=== PATIENT | female | born 1950 | race Two or more races ===

== ENCOUNTER 2017-05-26 13:02 | Inpatient (IN) | payer MEDICARE, MEDICAID ==
[~2017-05-26] VITALS: Ht 157.5 cm; Wt 79.5 kg
[2017-05-26] MEDS ORDERED: SODIUM CHLORIDE 0.9% 1,000 ML IV ONE (13:50)
[2017-05-26] MEDS ORDERED: NALBUPHINE HCL 10 MG/1ml INJECTION IV ONE (14:00)
[2017-05-26] MEDS ORDERED: METOCLOPRAMIDE HCL 5MG/ml INJ 2ml VIAL IV ONE (14:00)
[2017-05-26 14:23] LABS: Basophils # (auto) 0.1 uL; Eosinophils # (auto) 0.3 uL; Eosinophils % (auto) 3.9 % (0.0-7.0); Hemoglobin 11.5 g/dL (12.2-16.2); Lymphocytes # (auto) 2.5 uL; Mean Platelet Volume 7.3 fL (6.9-10.8); Monocytes # (auto) 1.1 uL
[2017-05-26 14:25] LABS: Basophils % (auto) 0.7 % (0.0-2.0); Hematocrit 33.8 % (36.0-46.0); Lymphocytes % (auto) 29.2 % (10.0-50.0); Mean Corpuscular Hemoglobin 34.6 pg (28.0-32.0); Mean Corpuscular Hgb Conc. 34.2 g/dL (32.0-36.0); Mean Corpuscular Volume 101.3 fL (80.0-100.0); Monocytes % (auto) 13.4 % (0.0-12.0); Neutrophils # (auto) 4.5 uL; Neutrophils % (auto) 52.8 % (37.0-80.0); Nucleated Red Blood Cells % 0.1 %; Platelet Count (auto) 230 10^3/uL (140-450); Red Cell Distribution Width 13.5 % (11.8-14.3); White Blood Cell 8.5 10^3/uL (4.4-10.8)
[2017-05-26 14:45] LABS: INR 1.03 (0.9-1.15); Partial Thromboplastin Time 25.7 sec (22.64-33.71); Prothrombin Time 11.2 sec (9.37-12.3)
[2017-05-26 14:47] LABS: Albumin 2.8 g/dL (3.4-5.0); Alkaline Phosphatase 89 U/L (45-117); Anion Gap 9 (5-15); Aspartate Aminotransferase 32 U/L (15-37); BUN/Creatinine Ratio 22.1; Bilirubin, Total 0.7 mg/dL (0.2-1.0); Blood Urea Nitrogen 17 mg/dL (7-18); Calcium 9.2 mg/dL (8.5-10.1); Carbon Dioxide 27 mmol/L (21-32); Chloride 102 mmol/L (98-107); GFR African American 97 mL/min; GFR Non-African American 80 mL/min; Glucose 117 mg/dL (74-106); Magnesium 1.9 mg/dL (1.6-2.6); Potassium 4.1 mmol/L (3.5-5.1); Sodium 138 mmol/L (136-145); Total Protein 8.6 g/dL (6.4-8.2)
[2017-05-26] MEDS ORDERED: SPIRONOLACTONE 25 MG TAB PO ONE (15:30)
[2017-05-26] MEDS ORDERED: IOHEXOL 350 MG/ML 100ML IJ ONE (15:30)
[2017-05-26] MEDS ORDERED: FUROSEMIDE 40 MG/4 ML VIAL IV ONE (15:30)
[2017-05-26] MEDS ORDERED: DEXTROSE (50%) 50ML SYRG IV PRN (16:30)
[2017-05-26] MEDS ORDERED: OSELTAMIVIR 75 MG CAP PO ONE (16:30)
[2017-05-26] MEDS ORDERED: LACTULOSE 20Gm/30ML SOLN PO PRN (16:30)
[2017-05-26] MEDS: PANTOPRAZOLE 40 MG TAB PO SCH (16:30)
[2017-05-26] MEDS: methylPREDNISolone SOD SUCC 40 MG/ML VL IV SCH (16:30)
[2017-05-26] MEDS ORDERED: ACETAMINOPHEN 500 MG TAB PO PRN (16:30)
[2017-05-26] MEDS ORDERED: TEMAZEPAM 15 MG CAP PO PRN (16:30)
[2017-05-26] MEDS ORDERED: ALBUTEROL SULF 2.5 MG/0.5ML(0.5%) NEB SOLN NEB PRN (16:30)
[2017-05-26] MEDS ORDERED: NITROGLYCERIN 0.4 MG SL TAB SL PRN (16:30)
[2017-05-26] MEDS ORDERED: MORPHINE SULF INJ 2 MG/ML SYRINGE 1ML IV PRN (16:30)
[2017-05-26 16:43] LABS: B-Type Natriuretic Peptide 20.43 pg/mL (0-100)
[2017-05-26] MEDS: ACCU-CHEK COMFORT CURVE STRIP VI SCH ×2 (16:49→23:11)
[2017-05-26] MEDS: InsuLIN REG 1unit/0.01ml Soln (100units/ml) SC SCH ×2 (16:49→23:12)
[2017-05-26 16:50] LABS: Temperature: 22.2 C (20.0-25.0)
[2017-05-26] MEDS: cefTRIAXone 1GM/10ml IVPUSH 10 ML IV SCH (17:02)
[2017-05-26] MEDS: ENOXAPARIN SOD 40 MG/0.4 ML SYRINGE SC SCH (17:06)
[2017-05-26 17:36] LABS: Urine Bilirubin Negative (Negative); Urine Blood Negative /uL (Negative); Urine Color Yellow (Yellow); Urine Glucose Normal (Normal); Urine Ketone Negative (Negative); Urine Nitrite Negative (Negative); Urine RBC <1 /hpf (0 - 4); Urine Squamous Epithelial Cell FEW /hpf (<5); Urine Urobilinogen Normal (Negative)
[2017-05-26] MEDS: ALBUTEROL SULF 2.5 MG/0.5ML(0.5%) NEB SOLN NEB SCH (18:27)
[2017-05-26] MEDS: IPRATROPIUM BROM 0.5 MG/2.5ML INH SOL NEB SCH (18:27)
[2017-05-26 19:21] VITALS: BP 110/65
[2017-05-26 21:00] VITALS: BP 106/79
[2017-05-26 22:00] VITALS: BP 106/79
[2017-05-26] MEDS: CARVEDILOL 3.125 MG TAB PO SCH (22:00)
[2017-05-26] MEDS: OSELTAMIVIR 75 MG CAP PO SCH (23:10)
[2017-05-26] MEDS: SODIUM CHLOR 0.9% PF (SALINE LOCK) 10ML VIAL IV SCH (23:10)
[2017-05-27] VITALS (8 sets, daily range): BP systolic 95–159; BP diastolic 54–96
[2017-05-27] MEDS: IPRATROPIUM BROM 0.5 MG/2.5ML INH SOL NEB SCH ×2 (00:36→18:46)
[2017-05-27] MEDS: ALBUTEROL SULF 2.5 MG/0.5ML(0.5%) NEB SOLN NEB SCH ×2 (00:36→18:46)
[2017-05-27] MEDS: MORPHINE SULF INJ 2 MG/ML SYRINGE 1ML IV PRN ×4 (01:10→23:02)
[2017-05-27] MEDS ORDERED: GABA-494 PO (02:03)
[2017-05-27] MEDS ORDERED: INSUINJ18 SC (02:03)
[2017-05-27] MEDS ORDERED: INSLANTI SC (02:03)
[2017-05-27] MEDS: methylPREDNISolone SOD SUCC 40 MG/ML VL IV SCH ×2 (04:15→17:58)
[2017-05-27] MEDS: SODIUM CHLOR 0.9% PF (SALINE LOCK) 10ML VIAL IV SCH ×3 (06:08→22:00)
[2017-05-27] MEDS: ACCU-CHEK COMFORT CURVE STRIP VI SCH ×4 (06:35→22:00)
[2017-05-27] MEDS: InsuLIN REG 1unit/0.01ml Soln (100units/ml) SC SCH ×4 (06:35→23:22)
[2017-05-27] MEDS: HYDROcodone-ACET 5/325MG TAB PO PRN ×2 (06:35→13:44)
[2017-05-27] MEDS: cefTRIAXone 1GM/10ml IVPUSH 10 ML IV SCH (09:13)
[2017-05-27] MEDS: PANTOPRAZOLE 40 MG TAB PO SCH ×2 (09:15→23:00)
[2017-05-27] MEDS: CARVEDILOL 3.125 MG TAB PO SCH (09:15)
[2017-05-27] MEDS: ENOXAPARIN SOD 40 MG/0.4 ML SYRINGE SC SCH (09:16)
[2017-05-27] MEDS: OSELTAMIVIR 75 MG CAP PO SCH ×2 (09:16→23:01)
[2017-05-27] MEDS ORDERED: DEXTROSE (50%) 50ML SYRG IV PRN (13:00)
[2017-05-27] MEDS ORDERED: TEMAZEPAM 15 MG CAP PO PRN (13:45)
[2017-05-27] MEDS ORDERED: DOXYCYCLINE 100 MG TAB/CAP PO ONE (14:00)
[2017-05-27] MEDS: DOXYCYCLINE 100 MG TAB/CAP PO SCH (22:00)
[2017-05-27] MEDS: LORazepam 0.5 MG TAB PO PRN (23:01)
[2017-05-27] MEDS: INSULIN DETEMIR(LEVEMIR) 1unit/0.01ml Soln (100units/ml) SC SCH (23:23)
[2017-05-28] MEDS: methylPREDNISolone SOD SUCC 40 MG/ML VL IV SCH ×2 (04:57→16:56)
[2017-05-28 05:00] VITALS: BP 116/69
[2017-05-28] MEDS: SODIUM CHLOR 0.9% PF (SALINE LOCK) 10ML VIAL IV SCH ×3 (06:25→22:21)
[2017-05-28] MEDS: ACCU-CHEK COMFORT CURVE STRIP VI SCH ×4 (06:26→22:23)
[2017-05-28] MEDS: HYDROcodone-ACET 5/325MG TAB PO PRN (06:34)
[2017-05-28] MEDS: IPRATROPIUM BROM 0.5 MG/2.5ML INH SOL NEB SCH ×4 (06:36→19:10)
[2017-05-28] MEDS: ALBUTEROL SULF 2.5 MG/0.5ML(0.5%) NEB SOLN NEB SCH ×4 (06:36→19:10)
[2017-05-28] MEDS: InsuLIN REG 1unit/0.01ml Soln (100units/ml) SC SCH ×4 (06:37→22:37)
[2017-05-28] MEDS: INSULIN DETEMIR(LEVEMIR) 1unit/0.01ml Soln (100units/ml) SC SCH ×2 (06:40→22:37)
[2017-05-28 09:00] VITALS: BP 117/70
[2017-05-28] MEDS: OSELTAMIVIR 75 MG CAP PO SCH ×2 (11:45→22:22)
[2017-05-28] MEDS: MORPHINE SULF INJ 2 MG/ML SYRINGE 1ML IV PRN ×2 (11:45→20:43)
[2017-05-28] MEDS: PANTOPRAZOLE 40 MG TAB PO SCH ×2 (11:45→22:22)
[2017-05-28] MEDS: cefTRIAXone 1GM/10ml IVPUSH 10 ML IV SCH (11:45)
[2017-05-28] MEDS: ENOXAPARIN SOD 40 MG/0.4 ML SYRINGE SC SCH (11:45)
[2017-05-28] MEDS: DOXYCYCLINE 100 MG TAB/CAP PO SCH (11:45)
[2017-05-28 15:04] VITALS: BP 117/67
[2017-05-28 16:30] VITALS: BP 107/65
[2017-05-28] MEDS ORDERED: MULTIPLE VITAMINS W/ MINERALS TAB PO ONE (18:00)
[2017-05-28] MEDS: PRO-STAT 64 30ML PO SCH (18:22)
[2017-05-28 21:45] VITALS: BP 110/60
[2017-05-28] MEDS: AZITHROMYCIN 500MG/ 250ML 250 ML IV SCH (22:21)
[2017-05-28] MEDS: ASCORBIC ACID 500 MG TAB PO SCH (22:22)
[2017-05-28] MEDS: LORazepam 0.5 MG TAB PO PRN (22:45)
[2017-05-29] VITALS (7 sets, daily range): BP systolic 104–128; BP diastolic 56–69
[2017-05-29] MEDS: IPRATROPIUM BROM 0.5 MG/2.5ML INH SOL NEB SCH ×4 (00:55→19:23)
[2017-05-29] MEDS: ALBUTEROL SULF 2.5 MG/0.5ML(0.5%) NEB SOLN NEB SCH ×4 (00:55→19:23)
[2017-05-29] MEDS: methylPREDNISolone SOD SUCC 40 MG/ML VL IV SCH ×2 (04:35→16:31)
[2017-05-29 06:03] LABS: Basophils # (auto) 0 uL; Basophils % (auto) 0.1 % (0.0-2.0); Eosinophils # (auto) 0 uL; Mean Platelet Volume 7.6 fL (6.9-10.8); Nucleated Red Blood Cells % 0.1 %; Red Cell Distribution Width 13.5 % (11.8-14.3)
[2017-05-29 06:06] LABS: Hematocrit 30.6 % (36.0-46.0); Hemoglobin 10.5 g/dL (12.2-16.2); Lymphocytes # (auto) 1.1 uL; Lymphocytes % (auto) 14.1 % (10.0-50.0); Mean Corpuscular Hemoglobin 34.3 pg (28.0-32.0); Mean Corpuscular Hgb Conc. 34.3 g/dL (32.0-36.0); Monocytes # (auto) 0.6 uL; Monocytes % (auto) 7.9 % (0.0-12.0); Neutrophils # (auto) 6.3 uL; Neutrophils % (auto) 77.9 % (37.0-80.0); Platelet Count (auto) 242 10^3/uL (140-450); White Blood Cell 8.1 10^3/uL (4.4-10.8)
[2017-05-29 06:18] LABS: Calcium 8.9 mg/dL (8.5-10.1); Potassium 4.3 mmol/L (3.5-5.1)
[2017-05-29] MEDS: SODIUM CHLOR 0.9% PF (SALINE LOCK) 10ML VIAL IV SCH ×3 (06:21→21:59)
[2017-05-29] MEDS: LEVOTHYROXINE SODIUM 25 MCG TAB PO SCH (06:27)
[2017-05-29] MEDS: ACCU-CHEK COMFORT CURVE STRIP VI SCH ×4 (06:27→22:00)
[2017-05-29] MEDS: INSULIN DETEMIR(LEVEMIR) 1unit/0.01ml Soln (100units/ml) SC SCH ×2 (06:28→22:19)
[2017-05-29] MEDS: InsuLIN REG 1unit/0.01ml Soln (100units/ml) SC SCH ×4 (06:28→22:19)
[2017-05-29] MEDS: PRO-STAT 64 30ML PO SCH ×2 (09:03→18:00)
[2017-05-29] MEDS: cefTRIAXone 1GM/10ml IVPUSH 10 ML IV SCH (09:03)
[2017-05-29] MEDS: ASCORBIC ACID 500 MG TAB PO SCH ×2 (10:13→21:59)
[2017-05-29] MEDS: OSELTAMIVIR 75 MG CAP PO SCH (10:13)
[2017-05-29] MEDS: MULTIPLE VITAMINS W/ MINERALS TAB PO SCH (10:13)
[2017-05-29] MEDS: AZITHROMYCIN 500MG/ 250ML 250 ML IV SCH (10:13)
[2017-05-29] MEDS: PANTOPRAZOLE 40 MG TAB PO SCH ×2 (10:13→21:59)
[2017-05-29] MEDS: ENOXAPARIN SOD 40 MG/0.4 ML SYRINGE SC SCH (10:14)
[2017-05-29] MEDS: LORazepam 0.5 MG TAB PO PRN (12:00)
[2017-05-29] MEDS: HYDROcodone-ACET 5/325MG TAB PO PRN (14:52)
[2017-05-30] MEDS: IPRATROPIUM BROM 0.5 MG/2.5ML INH SOL NEB SCH ×4 (00:51→18:39)
[2017-05-30] MEDS: ALBUTEROL SULF 2.5 MG/0.5ML(0.5%) NEB SOLN NEB SCH ×4 (00:52→18:39)
[2017-05-30] MEDS: methylPREDNISolone SOD SUCC 40 MG/ML VL IV SCH ×2 (04:43→16:59)
[2017-05-30 05:00] VITALS: BP 119/60
[2017-05-30] MEDS: SODIUM CHLOR 0.9% PF (SALINE LOCK) 10ML VIAL IV SCH ×3 (05:40→21:24)
[2017-05-30] MEDS: ACCU-CHEK COMFORT CURVE STRIP VI SCH ×4 (06:33→21:26)
[2017-05-30] MEDS: LEVOTHYROXINE SODIUM 25 MCG TAB PO SCH (06:33)
[2017-05-30] MEDS: InsuLIN REG 1unit/0.01ml Soln (100units/ml) SC SCH ×4 (06:37→21:31)
[2017-05-30] MEDS: INSULIN DETEMIR(LEVEMIR) 1unit/0.01ml Soln (100units/ml) SC SCH ×2 (06:38→21:30)
[2017-05-30] MEDS: MORPHINE SULF INJ 2 MG/ML SYRINGE 1ML IV PRN (06:43)
[2017-05-30 08:00] VITALS: BP 108/62
[2017-05-30 09:12] VITALS: BP 108/62
[2017-05-30] MEDS: PRO-STAT 64 30ML PO SCH ×2 (09:20→18:00)
[2017-05-30] MEDS: cefTRIAXone 1GM/10ml IVPUSH 10 ML IV SCH (09:21)
[2017-05-30] MEDS: ASCORBIC ACID 500 MG TAB PO SCH ×2 (10:01→21:26)
[2017-05-30] MEDS: ENOXAPARIN SOD 40 MG/0.4 ML SYRINGE SC SCH (10:01)
[2017-05-30] MEDS: AZITHROMYCIN 500MG/ 250ML 250 ML IV SCH (10:01)
[2017-05-30] MEDS: PANTOPRAZOLE 40 MG TAB PO SCH ×2 (10:01→21:26)
[2017-05-30] MEDS: MULTIPLE VITAMINS W/ MINERALS TAB PO SCH (10:02)
[2017-05-30 13:11] VITALS: BP 110/63
[2017-05-30 17:12] VITALS: BP 129/68
[2017-05-30] MEDS: FLUDROCORTISONE ACETATE 0.1 MG TAB PO SCH (21:25)
[2017-05-30 22:00] VITALS: BP 122/76
[2017-05-31] MEDS: IPRATROPIUM BROM 0.5 MG/2.5ML INH SOL NEB SCH ×5 (00:18→23:51)
[2017-05-31] MEDS: methylPREDNISolone SOD SUCC 40 MG/ML VL IV SCH ×2 (04:30→15:40)
[2017-05-31 05:00] VITALS: BP 108/67
[2017-05-31] MEDS: ALBUTEROL SULF 2.5 MG/0.5ML(0.5%) NEB SOLN NEB SCH ×5 (05:55→23:51)
[2017-05-31] MEDS: SODIUM CHLOR 0.9% PF (SALINE LOCK) 10ML VIAL IV SCH ×3 (06:17→21:52)
[2017-05-31] MEDS: FLUDROCORTISONE ACETATE 0.1 MG TAB PO SCH ×3 (06:19→21:52)
[2017-05-31] MEDS: ACCU-CHEK COMFORT CURVE STRIP VI SCH ×4 (06:20→21:58)
[2017-05-31] MEDS: LEVOTHYROXINE SODIUM 25 MCG TAB PO SCH (06:20)
[2017-05-31] MEDS: INSULIN DETEMIR(LEVEMIR) 1unit/0.01ml Soln (100units/ml) SC SCH ×2 (06:24→22:08)
[2017-05-31] MEDS: InsuLIN REG 1unit/0.01ml Soln (100units/ml) SC SCH ×4 (06:25→22:08)
[2017-05-31 09:00] VITALS: BP 116/80
[2017-05-31] MEDS: PANTOPRAZOLE 40 MG TAB PO SCH ×2 (09:14→21:52)
[2017-05-31] MEDS: ENOXAPARIN SOD 40 MG/0.4 ML SYRINGE SC SCH (09:14)
[2017-05-31] MEDS: ASCORBIC ACID 500 MG TAB PO SCH ×2 (09:14→21:52)
[2017-05-31] MEDS: MULTIPLE VITAMINS W/ MINERALS TAB PO SCH (09:14)
[2017-05-31] MEDS: PRO-STAT 64 30ML PO SCH ×2 (09:14→18:57)
[2017-05-31] MEDS: cefTRIAXone 1GM/10ml IVPUSH 10 ML IV SCH (09:15)
[2017-05-31] MEDS: PROMETHAZINE HCL 25 MG/ML 1ML IV PRN ×2 (11:12→12:08)
[2017-05-31] MEDS: AZITHROMYCIN 500MG/ 250ML 250 ML IV SCH (11:12)
[2017-05-31 13:00] VITALS: BP 119/65
[2017-05-31] MEDS: MORPHINE SULF INJ 2 MG/ML SYRINGE 1ML IV PRN (15:41)
[2017-05-31 17:00] VITALS: BP 115/70
[2017-05-31] MEDS: HYDROcodone-ACET 5/325MG TAB PO PRN (17:39)
[2017-05-31 20:00] VITALS: BP 112/75
[2017-05-31 23:45] VITALS: BP 112/75
[2017-06-01] MEDS: HYDROcodone-ACET 5/325MG TAB PO PRN (04:16)
[2017-06-01] MEDS: methylPREDNISolone SOD SUCC 40 MG/ML VL IV SCH ×2 (04:16→16:30)
[2017-06-01 05:47] VITALS: BP 133/81
[2017-06-01] MEDS: FLUDROCORTISONE ACETATE 0.1 MG TAB PO SCH ×2 (05:51→14:00)
[2017-06-01] MEDS: SODIUM CHLOR 0.9% PF (SALINE LOCK) 10ML VIAL IV SCH ×2 (05:51→14:00)
[2017-06-01] MEDS: LEVOTHYROXINE SODIUM 25 MCG TAB PO SCH (06:36)
[2017-06-01] MEDS: ALBUTEROL SULF 2.5 MG/0.5ML(0.5%) NEB SOLN NEB SCH ×2 (06:42→13:22)
[2017-06-01] MEDS: IPRATROPIUM BROM 0.5 MG/2.5ML INH SOL NEB SCH ×2 (06:42→13:22)
[2017-06-01] MEDS: InsuLIN REG 1unit/0.01ml Soln (100units/ml) SC SCH ×3 (06:46→16:50)
[2017-06-01] MEDS: ACCU-CHEK COMFORT CURVE STRIP VI SCH ×3 (06:46→16:50)
[2017-06-01] MEDS: INSULIN DETEMIR(LEVEMIR) 1unit/0.01ml Soln (100units/ml) SC SCH (06:46)
[2017-06-01 08:00] VITALS: BP 142/75
[2017-06-01] MEDS: PRO-STAT 64 30ML PO SCH ×2 (08:00→18:00)
[2017-06-01] MEDS: cefTRIAXone 1GM/10ml IVPUSH 10 ML IV SCH (09:12)
[2017-06-01] MEDS ORDERED: AZITHROMYCIN 250 MG TAB PO SCH (10:00)
[2017-06-01] MEDS: ASCORBIC ACID 500 MG TAB PO SCH (10:29)
[2017-06-01] MEDS: PANTOPRAZOLE 40 MG TAB PO SCH (10:29)
[2017-06-01] MEDS: MULTIPLE VITAMINS W/ MINERALS TAB PO SCH (10:29)
[2017-06-01] MEDS: ENOXAPARIN SOD 40 MG/0.4 ML SYRINGE SC SCH (10:30)
[2017-06-01 13:00] VITALS: BP 140/86
[2017-06-01 16:27] VITALS: BP 140/86
== END 2017-06-01 18:00 | disposition home health service (06) | DRG 189 ==
LOC: ER 13:02 → TELE 13:03 → TELE-WESTW 21:00
PROVIDERS: ADMIT Internal Medicine; ATTEND Internal Medicine
DX: J96.21 Acute and chronic respiratory failure with hypoxia (principal); E44.0 Moderate protein-calorie malnutrition; E11.21 Type 2 diabetes mellitus with diabetic nephropathy; E11.42 Type 2 diabetes mellitus with diabetic polyneuropathy; J44.1 Chronic obstructive pulmonary disease with (acute) exacerbation; J84.10 Pulmonary fibrosis, unspecified; K20.9 Esophagitis, unspecified; E03.9 Hypothyroidism, unspecified; I95.1 Orthostatic hypotension; I51.7 Cardiomegaly; E66.9 Obesity, unspecified; H53.8 Other visual disturbances; G47.00 Insomnia, unspecified; F41.9 Anxiety disorder, unspecified; R00.1 Bradycardia, unspecified; Z68.32 Body mass index [BMI] 32.0-32.9, adult; Z90.49 Acquired absence of other specified parts of digestive tract; Z88.8 Allergy status to other drugs, medicaments and biological substances
CPT/HCPCS: 36415; 71020; 71275; 80048; 80053; 81001; 82550; 82962; 83036; 83735; 83880; 84439; 84443; 84481; 84484; 85025; 85379; 85610; 85730; 87400; 93005; 93306; 94640; 94761; 95819; 96361; 96374; 96375; J1815

== ENCOUNTER 2017-06-08 12:53 | Inpatient (IN) | payer MEDICARE, MEDICAID ==
[~2017-06-08] VITALS: Ht 165.1 cm; Wt 76.6 kg
[~2017-06-08 12:53] MED LIST: GABA100C9 PO; INSLANTI SC; INSUINJ18 SC
[2017-06-08] MEDS ORDERED: IPRATROPIUM BROM 0.5 MG/2.5ML INH SOL NEB ONE (14:00)
[2017-06-08] MEDS ORDERED: methylPREDNISolone SOD SUCC 125 MG/2 ML VL IV ONE (14:00)
[2017-06-08] MEDS ORDERED: ALBUTEROL SULF 2.5 MG/0.5ML(0.5%) NEB SOLN NEB ONE (14:00)
[2017-06-08 14:25] LABS: Basophils # (auto) 0.1 uL; Eosinophils # (auto) 0.2 uL; Hematocrit 31.9 % (36.0-46.0); Hemoglobin 10.8 g/dL (12.2-16.2)
[2017-06-08 14:26] LABS: Basophils % (auto) 0.8 % (0.0-2.0); Eosinophils % (auto) 1.7 % (0.0-7.0); Lymphocytes # (auto) 2.3 uL; Mean Corpuscular Hemoglobin 34.1 pg (28.0-32.0); Mean Corpuscular Hgb Conc. 33.7 g/dL (32.0-36.0); Mean Corpuscular Volume 101.1 fL (80.0-100.0); Monocytes # (auto) 1.6 uL; Monocytes % (auto) 13.4 % (0.0-12.0); Neutrophils % (auto) 65.1 % (37.0-80.0); Platelet Count (auto) 184 10^3/uL (140-450); Red Blood Cells 3.16 10^6/uL (4.0-5.20); White Blood Cell 12.3 10^3/uL (4.4-10.8)
[2017-06-08 14:46] LABS: INR 1.03 (0.9-1.15); Partial Thromboplastin Time 29.4 sec (22.64-33.71); Prothrombin Time 11.2 sec (9.37-12.3)
[2017-06-08 14:51] LABS: Alanine Aminotransferase 22 U/L (13-56); Albumin 2.4 g/dL (3.4-5.0); Alkaline Phosphatase 85 U/L (45-117); Anion Gap 7 (5-15); Aspartate Aminotransferase 25 U/L (15-37); BUN/Creatinine Ratio 16.9; Bilirubin, Total 0.7 mg/dL (0.2-1.0); Blood Urea Nitrogen 11 mg/dL (7-18); Calcium 8.5 mg/dL (8.5-10.1); Carbon Dioxide 28 mmol/L (21-32); Chloride 103 mmol/L (98-107); GFR African American 118 mL/min; GFR Non-African American 97 mL/min; Glucose 119 mg/dL (74-106); Sodium 138 mmol/L (136-145); Total Protein 7.2 g/dL (6.4-8.2)
[2017-06-08] MEDS ORDERED: IOHEXOL 350 MG/ML 100ML IJ ONE (15:40)
[2017-06-08] MEDS ORDERED: PIPERACILLIN-TAZOB 3.375GM 50 ML IV ONE (15:45)
[2017-06-08] MEDS ORDERED: NITROGLYCERIN 0.4 MG SL TAB SL PRN (16:30)
[2017-06-08] MEDS ORDERED: ALBUTEROL SULF 2.5 MG/0.5ML(0.5%) NEB SOLN NEB PRN (16:30)
[2017-06-08] MEDS ORDERED: MORPHINE SULF INJ 2 MG/ML SYRINGE 1ML IV PRN (16:30)
[2017-06-08] MEDS ORDERED: DOCUSATE SOD 100 MG CAP PO PRN (16:30)
[2017-06-08] MEDS ORDERED: HYDROcodone-ACET 5/325MG TAB PO PRN (16:30)
[2017-06-08] MEDS ORDERED: DEXTROSE (50%) 50ML SYRG IV PRN (16:30)
[2017-06-08] MEDS ORDERED: TEMAZEPAM 15 MG CAP PO PRN (16:30)
[2017-06-08] MEDS ORDERED: ACETAMINOPHEN 325 MG TAB PO PRN (16:30)
[2017-06-08] MEDS: MORPHINE SULF INJ 2 MG/ML SYRINGE 1ML IV PRN ×2 (17:10→23:01)
[2017-06-08] MEDS: ONDANSETRON HCL 4 MG/2 ML VIAL IV PRN (17:10)
[2017-06-08] MEDS ORDERED: MORPHINE SULF INJ 2 MG/ML SYRINGE 1ML ONE (17:10)
[2017-06-08] MEDS ORDERED: ONDANSETRON HCL 4 MG/2 ML VIAL ONE (17:11)
[2017-06-08] MEDS ORDERED: GABA300C10 PO (17:49)
[2017-06-08] MEDS ORDERED: LEVO75TA6 PO (17:54)
[2017-06-08] MEDS ORDERED: MID10T PO (17:54)
[2017-06-08] MEDS: ACCU-CHEK COMFORT CURVE STRIP VI SCH ×2 (18:23→23:00)
[2017-06-08] MEDS: InsuLIN REG 1unit/0.01ml Soln (100units/ml) SC SCH ×2 (18:24→23:00)
[2017-06-08 18:40] VITALS: BP 113/79
[2017-06-08] MEDS: Boost Glucose Control 8 Ounces PO SCH (19:30)
[2017-06-08 20:00] VITALS: BP 113/79
[2017-06-08 22:00] VITALS: BP 99/58
[2017-06-08] MEDS ORDERED: INSULIN DETEMIR(LEVEMIR) 1unit/0.01ml Soln (100units/ml) SC SCH (22:00)
[2017-06-08] MEDS: SODIUM CHLOR 0.9% PF (SALINE LOCK) 10ML VIAL IV SCH (22:59)
[2017-06-08] MEDS: MIDODRINE HCL 10 MG TAB PO SCH (22:59)
[2017-06-08] MEDS: GABAPENTIN 300 MG CAP PO SCH (22:59)
[2017-06-08] MEDS: FAMOTIDINE 20 MG TAB PO SCH (22:59)
[2017-06-08] MEDS: INSULIN DETEMIR(LEVEMIR) 1unit/0.01ml Soln (100units/ml) SC SCH (23:00)
[2017-06-08] MEDS: PIPERACILLIN-TAZOB 3.375GM 50 ML IV SCH (23:12)
[2017-06-09 01:37] VITALS: BP 113/79
[2017-06-09] MEDS ORDERED: LORazepam 0.5 MG TAB PO ONE (02:45)
[2017-06-09] MEDS ORDERED: methylPREDNISolone SOD SUCC 125 MG/2 ML VL IV ONE (02:45)
[2017-06-09 05:00] VITALS: BP 125/77
[2017-06-09] MEDS: GABAPENTIN 300 MG CAP PO SCH ×3 (05:54→21:22)
[2017-06-09] MEDS: PIPERACILLIN-TAZOB 3.375GM 50 ML IV SCH ×4 (05:54→23:12)
[2017-06-09] MEDS: SODIUM CHLOR 0.9% PF (SALINE LOCK) 10ML VIAL IV SCH ×3 (05:54→21:22)
[2017-06-09] MEDS: ACCU-CHEK COMFORT CURVE STRIP VI SCH ×7 (05:55→21:24)
[2017-06-09] MEDS: InsuLIN REG 1unit/0.01ml Soln (100units/ml) SC SCH ×4 (05:55→21:33)
[2017-06-09] MEDS: MORPHINE SULF INJ 2 MG/ML SYRINGE 1ML IV PRN ×3 (05:55→21:34)
[2017-06-09] MEDS: INSULIN DETEMIR(LEVEMIR) 1unit/0.01ml Soln (100units/ml) SC SCH ×2 (05:55→21:33)
[2017-06-09] MEDS: MIDODRINE HCL 10 MG TAB PO SCH ×3 (05:55→21:33)
[2017-06-09] MEDS: LEVOTHYROXINE SODIUM 25 MCG TAB PO SCH (05:55)
[2017-06-09 06:03] LABS: Basophils # (auto) 0 uL; Basophils % (auto) 0.2 % (0.0-2.0); Eosinophils # (auto) 0.1 uL; Eosinophils % (auto) 0.6 % (0.0-7.0); Lymphocytes # (auto) 0.8 uL; Monocytes # (auto) 0.3 uL; Red Blood Cells 2.95 10^6/uL (4.0-5.20); Red Cell Distribution Width 13.8 % (11.8-14.3)
[2017-06-09 06:05] LABS: Hematocrit 30.3 % (36.0-46.0); Hemoglobin 10.3 g/dL (12.2-16.2); Lymphocytes % (auto) 7.2 % (10.0-50.0); Mean Corpuscular Hemoglobin 34.9 pg (28.0-32.0); Mean Corpuscular Volume 102.6 fL (80.0-100.0); Monocytes % (auto) 2.5 % (0.0-12.0); Neutrophils # (auto) 9.6 uL; Neutrophils % (auto) 89.5 % (37.0-80.0); Nucleated Red Blood Cells % 0.1 %; Platelet Count (auto) 192 10^3/uL (140-450); White Blood Cell 10.7 10^3/uL (4.4-10.8)
[2017-06-09 06:16] LABS: Chloride 100 mmol/L (98-107); Potassium 4.7 mmol/L (3.5-5.1); Sodium 133 mmol/L (136-145)
[2017-06-09 06:22] LABS: Alanine Aminotransferase 19 U/L (13-56); Albumin 2.3 g/dL (3.4-5.0); Anion Gap 7 (5-15); Aspartate Aminotransferase 24 U/L (15-37); BUN/Creatinine Ratio 19.8; Blood Urea Nitrogen 18 mg/dL (7-18); Calcium 8.9 mg/dL (8.5-10.1); Carbon Dioxide 26 mmol/L (21-32); GFR African American 80 mL/min; GFR Non-African American 66 mL/min; Glucose 380 mg/dL (74-106)
[2017-06-09 06:27] LABS: Alkaline Phosphatase 96 U/L (45-117); Bilirubin, Total 0.5 mg/dL (0.2-1.0); Total Protein 7.7 g/dL (6.4-8.2)
[2017-06-09] MEDS: Boost Glucose Control 8 Ounces PO SCH ×3 (08:44→18:02)
[2017-06-09 09:00] VITALS: BP 139/78
[2017-06-09] MEDS: FAMOTIDINE 20 MG TAB PO SCH ×2 (09:53→21:23)
[2017-06-09] MEDS: MULTIPLE VITAMIN TAB PO SCH (09:53)
[2017-06-09] MEDS ORDERED: AZITHROMYCIN 500MG/ 250ML 250 ML IV ONE (10:15)
[2017-06-09] MEDS ORDERED: DEXTROSE (50%) 50ML SYRG IV PRN (10:30)
[2017-06-09] MEDS ORDERED: BUDESONIDE (INHALATION) 0.5 MG/2 ML NEB NEB ONE (10:30)
[2017-06-09] MEDS: ONDANSETRON HCL 4 MG/2 ML VIAL IV PRN ×2 (10:40→21:34)
[2017-06-09] MEDS: methylPREDNISolone SOD SUCC 40 MG/ML VL IV SCH ×3 (12:02→23:12)
[2017-06-09 12:37] VITALS: BP 105/69
[2017-06-09 17:00] VITALS: BP 122/73
[2017-06-09] MEDS: PRO-STAT 64 30ML PO SCH (18:02)
[2017-06-09 22:00] VITALS: BP 117/63
[2017-06-09] MEDS: BUDESONIDE (INHALATION) 0.5 MG/2 ML NEB NEB SCH (22:00)
[2017-06-10 05:00] VITALS: BP 128/69
[2017-06-10 05:03] LABS: Basophils # (auto) 0 uL; Basophils % (auto) 0.1 % (0.0-2.0); Eosinophils # (auto) 0 uL; Hematocrit 28.3 % (36.0-46.0); Hemoglobin 9.6 g/dL (12.2-16.2); Mean Corpuscular Hemoglobin 34.1 pg (28.0-32.0); Monocytes # (auto) 0.9 uL; Neutrophils # (auto) 14.2 uL; Red Blood Cells 2.81 10^6/uL (4.0-5.20); White Blood Cell 16.1 10^3/uL (4.4-10.8)
[2017-06-10 05:04] LABS: Lymphocytes # (auto) 1.1 uL; Lymphocytes % (auto) 6.7 % (10.0-50.0); Mean Corpuscular Hgb Conc. 33.8 g/dL (32.0-36.0); Mean Corpuscular Volume 100.7 fL (80.0-100.0); Monocytes % (auto) 5.3 % (0.0-12.0); Neutrophils % (auto) 87.9 % (37.0-80.0); Platelet Count (auto) 214 10^3/uL (140-450); Red Cell Distribution Width 13.4 % (11.8-14.3)
[2017-06-10 05:18] LABS: Albumin 2.2 g/dL (3.4-5.0); BUN/Creatinine Ratio 31.9; Bilirubin, Total 0.3 mg/dL (0.2-1.0); Calcium 8.9 mg/dL (8.5-10.1); Potassium 4.3 mmol/L (3.5-5.1)
[2017-06-10] MEDS: SODIUM CHLOR 0.9% PF (SALINE LOCK) 10ML VIAL IV SCH ×3 (05:59→21:51)
[2017-06-10] MEDS: LEVOTHYROXINE SODIUM 25 MCG TAB PO SCH (06:00)
[2017-06-10] MEDS: GABAPENTIN 300 MG CAP PO SCH ×3 (06:00→21:52)
[2017-06-10] MEDS: PIPERACILLIN-TAZOB 3.375GM 50 ML IV SCH (06:00)
[2017-06-10] MEDS: methylPREDNISolone SOD SUCC 40 MG/ML VL IV SCH ×3 (06:00→18:05)
[2017-06-10] MEDS: MIDODRINE HCL 10 MG TAB PO SCH ×3 (06:00→21:52)
[2017-06-10] MEDS: ACCU-CHEK COMFORT CURVE STRIP VI SCH ×5 (06:00→21:43)
[2017-06-10] MEDS: InsuLIN REG 1unit/0.01ml Soln (100units/ml) SC SCH ×4 (06:11→21:52)
[2017-06-10] MEDS: MORPHINE SULF INJ 2 MG/ML SYRINGE 1ML IV PRN (06:11)
[2017-06-10] MEDS: INSULIN DETEMIR(LEVEMIR) 1unit/0.01ml Soln (100units/ml) SC SCH ×2 (06:11→21:53)
[2017-06-10] MEDS: Boost Glucose Control 8 Ounces PO SCH ×3 (08:13→18:06)
[2017-06-10] MEDS: PRO-STAT 64 30ML PO SCH ×2 (08:14→18:07)
[2017-06-10 08:30] VITALS: BP 134/71
[2017-06-10] MEDS: MULTIPLE VITAMIN TAB PO SCH (09:44)
[2017-06-10] MEDS: AZITHROMYCIN 500MG/ 250ML 250 ML IV SCH (09:45)
[2017-06-10] MEDS: FAMOTIDINE 20 MG TAB PO SCH ×2 (09:45→21:52)
[2017-06-10] MEDS ORDERED: POTASSIUM CHL 20 Meq TABLET PO ONE (10:00)
[2017-06-10] MEDS ORDERED: FUROSEMIDE 20 MG/2 ML VIAL IV ONE (10:00)
[2017-06-10] MEDS: BUDESONIDE (INHALATION) 0.5 MG/2 ML NEB NEB SCH ×2 (10:00→22:00)
[2017-06-10 13:00] VITALS: BP 118/63
[2017-06-10] MEDS: cefTRIAXone 1GM/10ml IVPUSH 10 ML IV SCH (13:11)
[2017-06-10 16:52] VITALS: BP 129/68
[2017-06-10] MEDS: HYDROmorphone HCL 2 MG/ML VL IV PRN (21:16)
[2017-06-10 21:59] VITALS: BP 123/68
[2017-06-11] VITALS (40 sets, daily range): BP systolic 91–164; BP diastolic 52–107
[2017-06-11] MEDS: methylPREDNISolone SOD SUCC 40 MG/ML VL IV SCH ×4 (00:15→18:02)
[2017-06-11] MEDS: HYDROmorphone HCL 2 MG/ML VL IV PRN ×3 (01:23→09:33)
[2017-06-11] MEDS: SODIUM CHLOR 0.9% PF (SALINE LOCK) 10ML VIAL IV SCH ×3 (05:46→22:02)
[2017-06-11] MEDS: GABAPENTIN 300 MG CAP PO SCH (05:46)
[2017-06-11] MEDS: MIDODRINE HCL 10 MG TAB PO SCH (05:47)
[2017-06-11] MEDS: ACCU-CHEK COMFORT CURVE STRIP VI SCH ×4 (05:47→22:02)
[2017-06-11] MEDS: LEVOTHYROXINE SODIUM 25 MCG TAB PO SCH (06:11)
[2017-06-11] MEDS: InsuLIN REG 1unit/0.01ml Soln (100units/ml) SC SCH ×4 (06:12→22:02)
[2017-06-11] MEDS: INSULIN DETEMIR(LEVEMIR) 1unit/0.01ml Soln (100units/ml) SC SCH ×2 (06:12→22:02)
[2017-06-11 06:38] LABS: BUN/Creatinine Ratio 51.6; Calcium 9.2 mg/dL (8.5-10.1); Potassium 4.2 mmol/L (3.5-5.1)
[2017-06-11] MEDS: BUDESONIDE (INHALATION) 0.5 MG/2 ML NEB NEB SCH ×2 (07:07→18:39)
[2017-06-11] MEDS: PRO-STAT 64 30ML PO SCH (08:00)
[2017-06-11] MEDS: MULTIPLE VITAMIN TAB PO SCH (09:30)
[2017-06-11] MEDS: FAMOTIDINE 20 MG TAB PO SCH ×2 (09:30→22:02)
[2017-06-11] MEDS: Boost Glucose Control 8 Ounces PO SCH ×2 (09:31→12:29)
[2017-06-11] MEDS: AZITHROMYCIN 500MG/ 250ML 250 ML IV SCH (09:31)
[2017-06-11] MEDS: cefTRIAXone 1GM/10ml IVPUSH 10 ML IV SCH (09:32)
[2017-06-11] MEDS ORDERED: MORPHINE SULFATE 4 MG/ML SYR/VIAL IV PRN (11:15)
[2017-06-11] MEDS ORDERED: FUROSEMIDE 40 MG TAB PO ONE (14:45)
[2017-06-11] MEDS ORDERED: POTASSIUM CHL 20 Meq TABLET PO ONE (14:45)
[2017-06-11] MEDS: DOXYCYCLINE HYC 100MG/250ML 250 ML IV SCH (14:45)
[2017-06-11] MEDS ORDERED: ETOMIDATE (2MG/ML) 20ML VIAL IV ONE (14:54)
[2017-06-11] MEDS ORDERED: fentaNYL Drip 2500mCg/250mlNS 250 ML IV SCH (15:22)
[2017-06-11] MEDS ORDERED: PROPOFOL 100 ML IV ONE ×2 (15:23→15:29)
[2017-06-11] MEDS: PROPOFOL 100 ML IV SCH (15:30)
[2017-06-11] MEDS: fentaNYL Drip 2500mCg/250mlNS 250 ML IV SCH (16:28)
[2017-06-11] MEDS: MIDAZOLAM DRIP 50 mg/50mL 50 ML IV SCH (16:29)
[2017-06-11] MEDS ORDERED: FUROSEMIDE 40 MG/4 ML VIAL IV ONE (17:00)
[2017-06-11] MEDS ORDERED: POTASSIUM CHL 10% (20 MEQ/15ML) 15ml ORAL SOLN GT ONE (17:00)
[2017-06-11] MEDS ORDERED: ENOXAPARIN SOD 40 MG/0.4 ML SYRINGE SC ONE (17:00)
[2017-06-11] MEDS: IPRATROPIUM BROM 0.5 MG/2.5ML INH SOL NEB SCH (18:32)
[2017-06-11] MEDS: ALBUTEROL SULF 2.5 MG/0.5ML(0.5%) NEB SOLN NEB SCH (18:32)
[2017-06-12] VITALS (107 sets, daily range): BP systolic 91–123; BP diastolic 50–77
[2017-06-12] MEDS: IPRATROPIUM BROM 0.5 MG/2.5ML INH SOL NEB SCH ×4 (00:13→18:34)
[2017-06-12] MEDS: ALBUTEROL SULF 2.5 MG/0.5ML(0.5%) NEB SOLN NEB SCH ×4 (00:13→18:34)
[2017-06-12] MEDS: DOXYCYCLINE HYC 100MG/250ML 250 ML IV SCH ×2 (02:45→14:57)
[2017-06-12 05:23] LABS: Basophils # (auto) 0 uL; Basophils % (auto) 0.1 % (0.0-2.0); Eosinophils # (auto) 0 uL; Hematocrit 28.9 % (36.0-46.0); Hemoglobin 9.8 g/dL (12.2-16.2); Lymphocytes # (auto) 0.8 uL; Lymphocytes % (auto) 7.6 % (10.0-50.0); Mean Corpuscular Hemoglobin 33.9 pg (28.0-32.0); Mean Corpuscular Hgb Conc. 33.7 g/dL (32.0-36.0); Mean Corpuscular Volume 100.5 fL (80.0-100.0); Monocytes # (auto) 0.6 uL; Monocytes % (auto) 5.7 % (0.0-12.0); Neutrophils # (auto) 9.4 uL; Neutrophils % (auto) 86.6 % (37.0-80.0); Platelet Count (auto) 187 10^3/uL (140-450); Red Blood Cells 2.88 10^6/uL (4.0-5.20); Red Cell Distribution Width 13.7 % (11.8-14.3); White Blood Cell 10.9 10^3/uL (4.4-10.8)
[2017-06-12 05:41] LABS: Calcium 8.8 mg/dL (8.5-10.1); Potassium 4.5 mmol/L (3.5-5.1)
[2017-06-12 05:44] LABS: Albumin 2.4 g/dL (3.4-5.0); BUN/Creatinine Ratio 47.1; Magnesium 2.3 mg/dL (1.6-2.6)
[2017-06-12 05:47] LABS: Bilirubin, Total 0.3 mg/dL (0.2-1.0); Total Protein 7.2 g/dL (6.4-8.2)
[2017-06-12] MEDS: methylPREDNISolone SOD SUCC 40 MG/ML VL IV SCH ×4 (06:04→18:04)
[2017-06-12] MEDS: SODIUM CHLOR 0.9% PF (SALINE LOCK) 10ML VIAL IV SCH ×3 (06:04→22:02)
[2017-06-12] MEDS: INSULIN DETEMIR(LEVEMIR) 1unit/0.01ml Soln (100units/ml) SC SCH ×2 (06:38→22:17)
[2017-06-12] MEDS: InsuLIN REG 1unit/0.01ml Soln (100units/ml) SC SCH ×4 (06:38→18:01)
[2017-06-12] MEDS: LEVOTHYROXINE SODIUM 25 MCG TAB PO SCH (06:38)
[2017-06-12] MEDS: ACCU-CHEK COMFORT CURVE STRIP VI SCH ×4 (06:38→18:01)
[2017-06-12] MEDS: ENOXAPARIN SOD 40 MG/0.4 ML SYRINGE SC SCH (09:32)
[2017-06-12] MEDS: FAMOTIDINE 20 MG TAB PO SCH (09:32)
[2017-06-12] MEDS: POTASSIUM CHL 10% (20 MEQ/15ML) 15ml ORAL SOLN GT SCH (09:33)
[2017-06-12] MEDS: FUROSEMIDE 40 MG/4 ML VIAL IV SCH (09:34)
[2017-06-12] MEDS ORDERED: POTASSIUM CHL 20 Meq TABLET PO SCH (10:00)
[2017-06-12] MEDS ORDERED: FUROSEMIDE 40 MG TAB PO SCH (10:00)
[2017-06-12] MEDS: BUDESONIDE (INHALATION) 0.5 MG/2 ML NEB NEB SCH ×2 (11:35→18:34)
[2017-06-12] MEDS ORDERED: BUDESONIDE (INHALATION) 0.5 MG/2 ML NEB NEB ONE (11:45)
[2017-06-12] MEDS ORDERED: DEXTROSE (50%) 50ML SYRG IV PRN (11:45)
[2017-06-12] MEDS ORDERED: Diabetisource AC 1 Liter GT SCH (12:15)
[2017-06-12] MEDS ORDERED: LIDOCAINE 1% HCL (LOCAL ANESTH.) INJ 20ML MDV ID ONE (12:30)
[2017-06-12] MEDS: MIDAZOLAM DRIP 50 mg/50mL 50 ML IV SCH ×2 (13:00→23:00)
[2017-06-12] MEDS: PROPOFOL 100 ML IV SCH (14:57)
[2017-06-12] MEDS: fentaNYL Drip 2500mCg/250mlNS 250 ML IV SCH (15:25)
[2017-06-12] MEDS: FAMOTIDINE (10MG/ML) 2ML VL IV SCH (22:01)
[2017-06-13] VITALS (101 sets, daily range): BP systolic 85–141; BP diastolic 45–108
[2017-06-13] MEDS: IPRATROPIUM BROM 0.5 MG/2.5ML INH SOL NEB SCH ×4 (00:14→17:50)
[2017-06-13] MEDS: ALBUTEROL SULF 2.5 MG/0.5ML(0.5%) NEB SOLN NEB SCH ×4 (00:14→17:50)
[2017-06-13] MEDS: ACCU-CHEK COMFORT CURVE STRIP VI SCH ×4 (00:30→17:01)
[2017-06-13] MEDS: InsuLIN REG 1unit/0.01ml Soln (100units/ml) SC SCH ×4 (00:30→17:57)
[2017-06-13] MEDS: DOXYCYCLINE HYC 100MG/250ML 250 ML IV SCH ×2 (02:45→13:01)
[2017-06-13] MEDS: PROPOFOL 100 ML IV SCH ×2 (03:00→15:22)
[2017-06-13 04:37] LABS: Basophils # (auto) 0 uL; Eosinophils # (auto) 0 uL; Hemoglobin 10.1 g/dL (12.2-16.2); Monocytes # (auto) 0.7 uL; White Blood Cell 11.6 10^3/uL (4.4-10.8)
[2017-06-13 04:41] LABS: Basophils % (auto) 0.4 % (0.0-2.0); Hematocrit 30.5 % (36.0-46.0); Lymphocytes # (auto) 0.3 uL; Lymphocytes % (auto) 2.4 % (10.0-50.0); Mean Corpuscular Hemoglobin 33.9 pg (28.0-32.0); Mean Corpuscular Volume 102.9 fL (80.0-100.0); Monocytes % (auto) 5.6 % (0.0-12.0); Neutrophils # (auto) 10.7 uL; Neutrophils % (auto) 91.6 % (37.0-80.0); Platelet Count (auto) 165 10^3/uL (140-450); Red Blood Cells 2.96 10^6/uL (4.0-5.20); Red Cell Distribution Width 13.9 % (11.8-14.3)
[2017-06-13 04:52] LABS: BUN/Creatinine Ratio 38.1; Calcium 8.8 mg/dL (8.5-10.1); Potassium 5.1 mmol/L (3.5-5.1)
[2017-06-13] MEDS: BUDESONIDE (INHALATION) 0.5 MG/2 ML NEB NEB SCH ×2 (05:39→17:50)
[2017-06-13] MEDS: methylPREDNISolone SOD SUCC 40 MG/ML VL IV SCH ×4 (06:30→17:56)
[2017-06-13] MEDS: LEVOTHYROXINE SODIUM 25 MCG TAB PO SCH (07:02)
[2017-06-13] MEDS: INSULIN DETEMIR(LEVEMIR) 1unit/0.01ml Soln (100units/ml) SC SCH ×2 (07:03→22:00)
[2017-06-13] MEDS: fentaNYL Drip 2500mCg/250mlNS 250 ML IV SCH (09:30)
[2017-06-13] MEDS: FAMOTIDINE (10MG/ML) 2ML VL IV SCH ×2 (09:31→22:00)
[2017-06-13] MEDS: FUROSEMIDE 40 MG/4 ML VIAL IV SCH (09:31)
[2017-06-13] MEDS: ENOXAPARIN SOD 40 MG/0.4 ML SYRINGE SC SCH (09:31)
[2017-06-13] MEDS: POTASSIUM CHL 10% (20 MEQ/15ML) 15ml ORAL SOLN GT SCH (09:32)
[2017-06-13] MEDS: SODIUM CHLOR 0.9% PF (SALINE LOCK) 10ML VIAL IV SCH ×2 (09:32→22:00)
[2017-06-13] MEDS: MIDAZOLAM DRIP 50 mg/50mL 50 ML IV SCH (17:30)
[2017-06-13 23:50] LABS: Magnesium 2.5 mg/dL (1.6-2.6); Potassium 4.3 mmol/L (3.5-5.1)
[2017-06-14] VITALS (98 sets, daily range): BP systolic 83–141; BP diastolic 48–84
[2017-06-14] MEDS: ALBUTEROL SULF 2.5 MG/0.5ML(0.5%) NEB SOLN NEB SCH ×4 (00:15→19:12)
[2017-06-14] MEDS: IPRATROPIUM BROM 0.5 MG/2.5ML INH SOL NEB SCH ×4 (00:15→19:12)
[2017-06-14] MEDS: DOXYCYCLINE HYC 100MG/250ML 250 ML IV SCH ×2 (02:45→12:49)
[2017-06-14 05:24] LABS: Basophils # (auto) 0 uL; Eosinophils # (auto) 0 uL; Lymphocytes # (auto) 0.5 uL; Lymphocytes % (auto) 4.5 % (10.0-50.0); Monocytes # (auto) 0.4 uL; Nucleated Red Blood Cells % 0.1 %
[2017-06-14 05:29] LABS: Basophils % (auto) 0.2 % (0.0-2.0); Hematocrit 28.9 % (36.0-46.0); Mean Corpuscular Hgb Conc. 34.6 g/dL (32.0-36.0); Mean Corpuscular Volume 101.3 fL (80.0-100.0); Monocytes % (auto) 3.9 % (0.0-12.0); Neutrophils # (auto) 9.2 uL; Neutrophils % (auto) 91.4 % (37.0-80.0); Platelet Count (auto) 171 10^3/uL (140-450); Red Blood Cells 2.86 10^6/uL (4.0-5.20); Red Cell Distribution Width 13.8 % (11.8-14.3)
[2017-06-14 05:42] LABS: Albumin 2.5 g/dL (3.4-5.0); BUN/Creatinine Ratio 59.7; Bilirubin, Total 0.3 mg/dL (0.2-1.0); Calcium 8.5 mg/dL (8.5-10.1); Potassium 4.4 mmol/L (3.5-5.1); Total Protein 7.1 g/dL (6.4-8.2)
[2017-06-14] MEDS: methylPREDNISolone SOD SUCC 40 MG/ML VL IV SCH ×5 (06:00→23:50)
[2017-06-14] MEDS: InsuLIN REG 1unit/0.01ml Soln (100units/ml) SC SCH ×4 (06:30→17:42)
[2017-06-14] MEDS: ACCU-CHEK COMFORT CURVE STRIP VI SCH ×4 (06:30→17:42)
[2017-06-14] MEDS: LEVOTHYROXINE SODIUM 25 MCG TAB PO SCH (06:35)
[2017-06-14] MEDS: INSULIN DETEMIR(LEVEMIR) 1unit/0.01ml Soln (100units/ml) SC SCH ×2 (06:35→22:20)
[2017-06-14] MEDS: FAMOTIDINE (10MG/ML) 2ML VL IV SCH ×2 (09:46→22:14)
[2017-06-14] MEDS: ENOXAPARIN SOD 40 MG/0.4 ML SYRINGE SC SCH (09:46)
[2017-06-14] MEDS: POTASSIUM CHL 10% (20 MEQ/15ML) 15ml ORAL SOLN GT SCH (09:47)
[2017-06-14] MEDS: FUROSEMIDE 40 MG/4 ML VIAL IV SCH (09:47)
[2017-06-14] MEDS: SODIUM CHLOR 0.9% PF (SALINE LOCK) 10ML VIAL IV SCH ×2 (09:47→22:14)
[2017-06-14] MEDS: BUDESONIDE (INHALATION) 0.5 MG/2 ML NEB NEB SCH ×2 (10:00→19:13)
[2017-06-14] MEDS: PROPOFOL 100 ML IV SCH (15:22)
[2017-06-14] MEDS: fentaNYL Drip 2500mCg/250mlNS 250 ML IV SCH (15:30)
[2017-06-14] MEDS: MIDAZOLAM DRIP 50 mg/50mL 50 ML IV SCH ×2 (15:30)
[2017-06-15] VITALS (101 sets, daily range): BP systolic 92–143; BP diastolic 55–86
[2017-06-15] MEDS: ACCU-CHEK COMFORT CURVE STRIP VI SCH ×5 (00:17→23:24)
[2017-06-15] MEDS: ALBUTEROL SULF 2.5 MG/0.5ML(0.5%) NEB SOLN NEB SCH ×4 (00:24→18:45)
[2017-06-15] MEDS: IPRATROPIUM BROM 0.5 MG/2.5ML INH SOL NEB SCH ×4 (00:24→18:45)
[2017-06-15] MEDS: InsuLIN REG 1unit/0.01ml Soln (100units/ml) SC SCH ×5 (00:25→23:24)
[2017-06-15] MEDS: MIDAZOLAM DRIP 50 mg/50mL 50 ML IV SCH ×4 (00:25→21:42)
[2017-06-15] MEDS: DOXYCYCLINE HYC 100MG/250ML 250 ML IV SCH (03:36)
[2017-06-15] MEDS: BUDESONIDE (INHALATION) 0.5 MG/2 ML NEB NEB SCH (06:25)
[2017-06-15] MEDS: methylPREDNISolone SOD SUCC 40 MG/ML VL IV SCH ×3 (06:45→21:42)
[2017-06-15 06:49] LABS: Basophils # (auto) 0 uL; Basophils % (auto) 0.1 % (0.0-2.0); Eosinophils # (auto) 0 uL; Lymphocytes # (auto) 0.4 uL; Lymphocytes % (auto) 4.6 % (10.0-50.0); Mean Corpuscular Volume 101.6 fL (80.0-100.0); Monocytes # (auto) 0.5 uL; Neutrophils # (auto) 8.6 uL; Nucleated Red Blood Cells % 0.1 %; White Blood Cell 9.5 10^3/uL (4.4-10.8)
[2017-06-15 06:51] LABS: Hematocrit 27.2 % (36.0-46.0); Hemoglobin 9.3 g/dL (12.2-16.2); Mean Corpuscular Hemoglobin 34.7 pg (28.0-32.0); Mean Corpuscular Hgb Conc. 34.1 g/dL (32.0-36.0); Monocytes % (auto) 5.4 % (0.0-12.0); Neutrophils % (auto) 89.9 % (37.0-80.0); Platelet Count (auto) 161 10^3/uL (140-450); Red Blood Cells 2.67 10^6/uL (4.0-5.20); Red Cell Distribution Width 14.1 % (11.8-14.3)
[2017-06-15] MEDS: LEVOTHYROXINE SODIUM 25 MCG TAB PO SCH (06:58)
[2017-06-15] MEDS: INSULIN DETEMIR(LEVEMIR) 1unit/0.01ml Soln (100units/ml) SC SCH ×2 (06:59→23:24)
[2017-06-15 07:18] LABS: BUN/Creatinine Ratio 73.1; Calcium 8.2 mg/dL (8.5-10.1); Potassium 4.6 mmol/L (3.5-5.1)
[2017-06-15] MEDS: FAMOTIDINE (10MG/ML) 2ML VL IV SCH ×2 (09:38→21:43)
[2017-06-15] MEDS: FUROSEMIDE 40 MG/4 ML VIAL IV SCH (09:38)
[2017-06-15] MEDS: ENOXAPARIN SOD 40 MG/0.4 ML SYRINGE SC SCH (09:39)
[2017-06-15] MEDS: POTASSIUM CHL 10% (20 MEQ/15ML) 15ml ORAL SOLN GT SCH (09:40)
[2017-06-15] MEDS: SODIUM CHLOR 0.9% PF (SALINE LOCK) 10ML VIAL IV SCH ×2 (09:40→21:42)
[2017-06-15] MEDS: fentaNYL Drip 2500mCg/250mlNS 250 ML IV SCH (09:41)
[2017-06-15] MEDS ORDERED: VANCOMYCIN PER PHARMACY 0 MG IV SCH (12:15)
[2017-06-15] MEDS ORDERED: cefTRIAXone 1GM/10ml IVPUSH 10 ML IV ONE (12:30)
[2017-06-15 12:45] LABS: INR 1.01 (0.9-1.15)
[2017-06-15] MEDS: PROPOFOL 100 ML IV SCH ×2 (13:22→19:00)
[2017-06-15] MEDS ORDERED: VANCOMYCIN 1,250 MG in D5W 5% 250 ML IV SCH (14:00)
[2017-06-15] MEDS ORDERED: methylPREDNISolone SOD SUCC 40 MG/ML VL IV SCH (14:00)
[2017-06-15] MEDS ORDERED: LIDOCAINE 2%HCL (LOCAL ANESTH.) INJ 20ML MDV ONE (14:21)
[2017-06-15] MEDS: VANCOMYCIN 1,250 MG in D5W 5% 250 ML IV SCH (16:45)
[2017-06-16] VITALS (100 sets, daily range): BP systolic 90–138; BP diastolic 32–77
[2017-06-16] MEDS: BUDESONIDE (INHALATION) 0.5 MG/2 ML NEB NEB SCH ×3 (00:14→18:26)
[2017-06-16] MEDS: IPRATROPIUM BROM 0.5 MG/2.5ML INH SOL NEB SCH ×4 (00:15→18:26)
[2017-06-16] MEDS: ALBUTEROL SULF 2.5 MG/0.5ML(0.5%) NEB SOLN NEB SCH ×4 (00:15→18:26)
[2017-06-16] MEDS: MIDAZOLAM DRIP 50 mg/50mL 50 ML IV SCH ×5 (02:56→20:31)
[2017-06-16] MEDS: VANCOMYCIN 1,250 MG in D5W 5% 250 ML IV SCH (03:51)
[2017-06-16 04:04] LABS: Basophils # (auto) 0 uL; Eosinophils # (auto) 0 uL; Lymphocytes # (auto) 0.3 uL; Monocytes # (auto) 0.6 uL; Red Blood Cells 2.77 10^6/uL (4.0-5.20); Red Cell Distribution Width 13.7 % (11.8-14.3)
[2017-06-16 04:07] LABS: Hematocrit 27.9 % (36.0-46.0); Hemoglobin 9.5 g/dL (12.2-16.2); Lymphocytes % (auto) 3.3 % (10.0-50.0); Mean Corpuscular Hemoglobin 34.5 pg (28.0-32.0); Mean Corpuscular Hgb Conc. 34.1 g/dL (32.0-36.0); Monocytes % (auto) 7.2 % (0.0-12.0); Neutrophils # (auto) 7.8 uL; Neutrophils % (auto) 89.5 % (37.0-80.0); Platelet Count (auto) 154 10^3/uL (140-450); White Blood Cell 8.7 10^3/uL (4.4-10.8)
[2017-06-16 04:20] LABS: BUN/Creatinine Ratio 71.2; Calcium 8.6 mg/dL (8.5-10.1); Potassium 5.3 mmol/L (3.5-5.1)
[2017-06-16] MEDS: LEVOTHYROXINE SODIUM 25 MCG TAB PO SCH (06:28)
[2017-06-16] MEDS: INSULIN DETEMIR(LEVEMIR) 1unit/0.01ml Soln (100units/ml) SC SCH ×2 (06:28→22:49)
[2017-06-16] MEDS: methylPREDNISolone SOD SUCC 40 MG/ML VL IV SCH ×3 (06:28→22:36)
[2017-06-16] MEDS: ACCU-CHEK COMFORT CURVE STRIP VI SCH ×3 (06:28→18:18)
[2017-06-16] MEDS: InsuLIN REG 1unit/0.01ml Soln (100units/ml) SC SCH ×3 (06:29→18:18)
[2017-06-16] MEDS: cefTRIAXone 1GM/10ml IVPUSH 10 ML IV SCH (10:00)
[2017-06-16] MEDS: FUROSEMIDE 40 MG/4 ML VIAL IV SCH (11:00)
[2017-06-16] MEDS: SODIUM CHLOR 0.9% PF (SALINE LOCK) 10ML VIAL IV SCH ×2 (11:00→22:37)
[2017-06-16] MEDS: ENOXAPARIN SOD 40 MG/0.4 ML SYRINGE SC SCH (11:00)
[2017-06-16] MEDS: FAMOTIDINE (10MG/ML) 2ML VL IV SCH ×2 (11:00→22:36)
[2017-06-16] MEDS: fentaNYL Drip 2500mCg/250mlNS 250 ML IV SCH (15:00)
[2017-06-17] VITALS (124 sets, daily range): BP systolic 96–142; BP diastolic 46–75
[2017-06-17] MEDS: IPRATROPIUM BROM 0.5 MG/2.5ML INH SOL NEB SCH ×4 (00:15→18:28)
[2017-06-17] MEDS: ALBUTEROL SULF 2.5 MG/0.5ML(0.5%) NEB SOLN NEB SCH ×4 (00:15→18:28)
[2017-06-17] MEDS: InsuLIN REG 1unit/0.01ml Soln (100units/ml) SC SCH ×4 (00:52→17:42)
[2017-06-17] MEDS: MIDAZOLAM DRIP 50 mg/50mL 50 ML IV SCH ×5 (01:28→21:29)
[2017-06-17] MEDS ORDERED: VANCOMYCIN 1,250 MG in SODIUM CHL 0.9% 250 ML IV SCH (04:00)
[2017-06-17 04:13] LABS: Basophils # (auto) 0 uL; Basophils % (auto) 0.1 % (0.0-2.0); Eosinophils # (auto) 0 uL; Hemoglobin 9.4 g/dL (12.2-16.2); Lymphocytes # (auto) 0.3 uL; Monocytes # (auto) 0.8 uL; Neutrophils % (auto) 89.1 % (37.0-80.0); White Blood Cell 9.7 10^3/uL (4.4-10.8)
[2017-06-17 04:16] LABS: Hematocrit 27.8 % (36.0-46.0); Lymphocytes % (auto) 2.6 % (10.0-50.0); Mean Corpuscular Hemoglobin 34.5 pg (28.0-32.0); Mean Corpuscular Hgb Conc. 33.8 g/dL (32.0-36.0); Monocytes % (auto) 8.2 % (0.0-12.0); Neutrophils # (auto) 8.6 uL; Platelet Count (auto) 152 10^3/uL (140-450); Red Blood Cells 2.72 10^6/uL (4.0-5.20); Red Cell Distribution Width 13.5 % (11.8-14.3)
[2017-06-17 04:31] LABS: Calcium 8.5 mg/dL (8.5-10.1); Potassium 5.3 mmol/L (3.5-5.1)
[2017-06-17] MEDS: ACCU-CHEK COMFORT CURVE STRIP VI SCH ×4 (05:14→17:42)
[2017-06-17] MEDS: BUDESONIDE (INHALATION) 0.5 MG/2 ML NEB NEB SCH ×2 (06:20→18:28)
[2017-06-17] MEDS: methylPREDNISolone SOD SUCC 40 MG/ML VL IV SCH ×3 (07:17→21:59)
[2017-06-17] MEDS: LEVOTHYROXINE SODIUM 25 MCG TAB PO SCH (07:18)
[2017-06-17] MEDS: INSULIN DETEMIR(LEVEMIR) 1unit/0.01ml Soln (100units/ml) SC SCH ×2 (07:28→22:00)
[2017-06-17] MEDS: fentaNYL Drip 2500mCg/250mlNS 250 ML IV SCH ×2 (08:52→21:28)
[2017-06-17] MEDS: SODIUM CHLOR 0.9% PF (SALINE LOCK) 10ML VIAL IV SCH ×2 (10:17→21:59)
[2017-06-17] MEDS: FUROSEMIDE 40 MG/4 ML VIAL IV SCH (10:23)
[2017-06-17] MEDS: ENOXAPARIN SOD 40 MG/0.4 ML SYRINGE SC SCH (10:23)
[2017-06-17] MEDS: cefTRIAXone 1GM/10ml IVPUSH 10 ML IV SCH (10:23)
[2017-06-17] MEDS: FAMOTIDINE (10MG/ML) 2ML VL IV SCH ×2 (10:23→21:59)
[2017-06-17] MEDS: VANCOMYCIN 1GM/250ML 250 ML IV SCH ×2 (14:04→22:00)
[2017-06-17] MEDS: PROPOFOL 100 ML IV SCH (16:46)
[2017-06-18] VITALS (91 sets, daily range): BP systolic 92–125; BP diastolic 27–70
[2017-06-18] MEDS: ACCU-CHEK COMFORT CURVE STRIP VI SCH ×3 (00:03→11:37)
[2017-06-18] MEDS: IPRATROPIUM BROM 0.5 MG/2.5ML INH SOL NEB SCH ×3 (00:29→12:10)
[2017-06-18] MEDS: ALBUTEROL SULF 2.5 MG/0.5ML(0.5%) NEB SOLN NEB SCH ×3 (00:29→12:10)
[2017-06-18] MEDS: MIDAZOLAM DRIP 50 mg/50mL 50 ML IV SCH ×4 (02:53→16:00)
[2017-06-18 04:40] LABS: Eosinophils # (auto) 0 uL; Eosinophils % (auto) 0.1 % (0.0-7.0); Hemoglobin 9.5 g/dL (12.2-16.2); Nucleated Red Blood Cells % 0.2 %
[2017-06-18 04:42] LABS: Basophils # (auto) 0 uL; Basophils % (auto) 0.1 % (0.0-2.0); Hematocrit 28.8 % (36.0-46.0); Lymphocytes # (auto) 0.4 uL; Mean Corpuscular Hemoglobin 34.2 pg (28.0-32.0); Mean Corpuscular Hgb Conc. 33.2 g/dL (32.0-36.0); Mean Corpuscular Volume 103.2 fL (80.0-100.0); Monocytes # (auto) 0.6 uL; Neutrophils # (auto) 8.9 uL; Neutrophils % (auto) 89.8 % (37.0-80.0); Platelet Count (auto) 139 10^3/uL (140-450); Red Blood Cells 2.79 10^6/uL (4.0-5.20); Red Cell Distribution Width 13.9 % (11.8-14.3); White Blood Cell 9.9 10^3/uL (4.4-10.8)
[2017-06-18 05:12] LABS: Albumin 2.5 g/dL (3.4-5.0); BUN/Creatinine Ratio 92.7; Bilirubin, Total 0.3 mg/dL (0.2-1.0); Calcium 8.4 mg/dL (8.5-10.1); Potassium 5.4 mmol/L (3.5-5.1); Total Protein 6.9 g/dL (6.4-8.2)
[2017-06-18] MEDS: VANCOMYCIN 1GM/250ML 250 ML IV SCH (05:43)
[2017-06-18] MEDS: methylPREDNISolone SOD SUCC 40 MG/ML VL IV SCH ×2 (05:44→14:32)
[2017-06-18] MEDS: InsuLIN REG 1unit/0.01ml Soln (100units/ml) SC SCH ×3 (05:45→11:43)
[2017-06-18] MEDS: BUDESONIDE (INHALATION) 0.5 MG/2 ML NEB NEB SCH (06:37)
[2017-06-18] MEDS: INSULIN DETEMIR(LEVEMIR) 1unit/0.01ml Soln (100units/ml) SC SCH (06:40)
[2017-06-18] MEDS: LEVOTHYROXINE SODIUM 25 MCG TAB PO SCH (06:40)
[2017-06-18] MEDS: fentaNYL Drip 2500mCg/250mlNS 250 ML IV SCH (10:36)
[2017-06-18] MEDS: FUROSEMIDE 40 MG/4 ML VIAL IV SCH (11:00)
[2017-06-18] MEDS: cefTRIAXone 1GM/10ml IVPUSH 10 ML IV SCH (11:02)
[2017-06-18] MEDS: SODIUM CHLOR 0.9% PF (SALINE LOCK) 10ML VIAL IV SCH (11:03)
[2017-06-18] MEDS: FAMOTIDINE (10MG/ML) 2ML VL IV SCH (11:03)
[2017-06-18] MEDS: ENOXAPARIN SOD 40 MG/0.4 ML SYRINGE SC SCH (11:04)
[2017-06-18] MEDS ORDERED: ACETYLCYSTEINE 10 %(100MG/ML) SOL 4ML NEB SCH (14:00)
[2017-06-18] MEDS: PROPOFOL 100 ML IV SCH (15:22)
[2017-06-18] MEDS ORDERED: MORPHINE SULFATE 4 MG/ML SYR/VIAL IV PRN (16:30)
[2017-06-18] MEDS ORDERED: LORazepam 2MG/ML-1ML VIAL IV PRN (16:30)
== END 2017-06-19 03:28 | disposition expired | DRG 870 ==
LOC: EDBD 12:53 → ER 12:55 → TELE 12:56 → TELE-CENTR 19:00 → ICU WEST 06-11 15:24
PROVIDERS: ADMIT Internal Medicine; ATTEND Internal Medicine
PROC: 5A1955Z Respiratory Ventilation, Greater than 96 Consecutive Hours (ICD-10-PCS; 2017-06-11)
PROC: 0BH17EZ Insertion of Endotracheal Airway into Trachea, Via Natural or Artificial Opening (ICD-10-PCS; 2017-06-11)
PROC: 02HV33Z Insertion of Infusion Device into Superior Vena Cava, Percutaneous Approach (ICD-10-PCS; principal; 2017-06-12)
PROC: 0W9B30Z Drainage of Left Pleural Cavity with Drainage Device, Percutaneous Approach (ICD-10-PCS; 2017-06-15)
DX: A41.9 Sepsis, unspecified organism (principal); J96.21 Acute and chronic respiratory failure with hypoxia; J18.9 Pneumonia, unspecified organism; E44.0 Moderate protein-calorie malnutrition; J96.22 Acute and chronic respiratory failure with hypercapnia; J44.0 Chronic obstructive pulmonary disease with (acute) lower respiratory infection; J44.1 Chronic obstructive pulmonary disease with (acute) exacerbation; T79.7XXA Traumatic subcutaneous emphysema, initial encounter; J93.9 Pneumothorax, unspecified; J84.112 Idiopathic pulmonary fibrosis; J20.9 Acute bronchitis, unspecified; D63.8 Anemia in other chronic diseases classified elsewhere; E03.9 Hypothyroidism, unspecified; I95.1 Orthostatic hypotension; K44.9 Diaphragmatic hernia without obstruction or gangrene; L89.92 Pressure ulcer of unspecified site, stage 2; Z74.01 Bed confinement status; Z79.4 Long term (current) use of insulin; Z83.3 Family history of diabetes mellitus; E11.43 Type 2 diabetes mellitus with diabetic autonomic (poly)neuropathy; E11.65 Type 2 diabetes mellitus with hyperglycemia
CPT/HCPCS: 10022; 36415; 36569; 36600; 70450; 71010; 71250; 71275; 77012; 80048; 80053; 80202; 82805; 82962; 83036; 83605; 83735; 83880; 84132; 84443; 84484; 85025; 85379; 85610; 85730; 87040; 87070; 87081; 87205; 93005; 93971; 94002; 94003; 94640; 96365; 96375; A4223; C1729; J1815; J2250; J2405; J2543; J2704; J3010; J3490; J7060